=== PATIENT | female | born 1945 | race Caucasian/White ===

== ENCOUNTER 2018-02-12 23:24 | Emergency (ER) | payer OTHER, MEDICARE ==
[~2018-02-12] VITALS: Ht 152.4 cm; Wt 50.4 kg
[~2018-02-12 23:24] MED LIST: ANUSOL HC,ANUCO25 MG PR; ATORVASTATIN CA10 MG PO; DIPHENOXYLATE/1 EACH PO; HYOSCYAMINE0.375 MG PO; HYZAAR 100-21 TABLET PO; INDERAL LA120 MG PO; K-DUR20 MEQ PO; K-Dur PO; KLOR-CON M2020 MEQ PO; LOMOTIL TABLET1 EACH PO; LOPID600 MG PO; LOSARTAN-HCTZ1 EAC3 PO; MAGNESIUM OXID400 MG PO; MULTIVITAMIN1 EAC2 PO; NORVASC2.5 MG PO; PANTOPRAZOLE SO40 MG PO; PRAVASTATIN SOD80 MG PO; Tums,OsCal PO
[2018-02-13 00:10] LABS: HEMOGLOBIN 11.8 G/DL (11.9-15.5); MCH 30.7 PG (29.0-34.0); MCHC 34.7 G/DL (30.0-36.0); MCV 88.5 FL (83-99); PLATELET COUNT 268 K/uL (156-360); RBC DIS.WIDTH-CV 13.2 % (11.8-14.6); RBC DIS.WIDTH-SD 42.5 % (39-53); RED BLOOD COUNT 3.84 M/uL (3.80-5.20); WHITE BLOOD COUNT 8.3 K/uL (4.1-10.2)
[2018-02-13 00:20] LABS: ALBUMIN 4.5 g/dL (3.2-4.8); CHLORIDE 113 mEq/L (99-109); POTASSIUM 3.3 mEq/L (3.7-5.4); SODIUM 147 mEq/L (136-147)
[2018-02-13 00:23] LABS: GLUCOSE 102 mg/dL (70-99); TOTAL PROTEIN 7.6 g/dL (6.4-8.3)
[2018-02-13 00:25] LABS: TOTAL BILIRUBIN 0.6 mg/dL (0.0-1.0)
[2018-02-13 00:26] LABS: ALKALINE PHOSPHATASE 103 IU/L (3-129)
[2018-02-13 00:27] LABS: GFR ESTIMATE (CALCULATED) 58 mL/min/
[2018-02-13 00:28] LABS: AST (GOT) 19 IU/L (2-34); UREA NITROGEN (BUN) 16 mg/dL (9-23)
[2018-02-13 00:30] LABS: ALT (GPT) 10 IU/L (3-49)
[2018-02-13 00:34] LABS: MAGNESIUM 0.8 mg/dL (1.3-2.7)
[2018-02-13 03:05] VITALS: BP 176/70
== END 2018-02-13 03:06 | disposition home or self-care (01) ==
LOC: EME 23:24
PROVIDERS: Physician Assistant
DX: E83.42 Hypomagnesemia (principal); K21.9 Gastro-esophageal reflux disease without esophagitis; I10 Essential (primary) hypertension; E78.5 Hyperlipidemia, unspecified; R73.09 Other abnormal glucose
CPT/HCPCS: 80053; 83735; 85027; 99281; 99285; J3475

== ENCOUNTER 2018-05-20 03:57 | Emergency (ER) | payer OTHER, MEDICARE ==
[~2018-05-20] VITALS: Ht 149.9 cm; Wt 49.9 kg
[2018-05-20 04:24] LABS: HEMATOCRIT 35.4 % (36.0-46.0); HEMOGLOBIN 12.2 G/DL (11.9-15.5); MCHC 34.5 G/DL (30.0-36.0); MCV 90.1 FL (83-99); PLATELET COUNT 313 K/uL (156-360); RBC DIS.WIDTH-CV 13.1 % (11.8-14.6); RBC DIS.WIDTH-SD 42.9 % (39-53); RED BLOOD COUNT 3.93 M/uL (3.80-5.20); WHITE BLOOD COUNT 9.2 K/uL (4.1-10.2)
[2018-05-20 04:36] LABS: CHLORIDE 113 mEq/L (99-109); POTASSIUM 3.7 mEq/L (3.7-5.4); SODIUM 147 mEq/L (136-147)
[2018-05-20 04:38] LABS: GLUCOSE 102 mg/dL (70-99)
[2018-05-20 04:42] LABS: CREATININE 1.2 mg/dL (0.6-1.3); GFR ESTIMATE (CALCULATED) 47 mL/min/
[2018-05-20 04:43] LABS: UREA NITROGEN (BUN) 17 mg/dL (9-23)
[2018-05-20 05:42] LABS: ALBUMIN 4.8 g/dL (3.2-4.8)
[2018-05-20 05:43] LABS: MAGNESIUM 1.1 mg/dL (1.3-2.7)
[2018-05-20 05:45] LABS: TOTAL PROTEIN 8.2 g/dL (6.4-8.3)
[2018-05-20 05:46] LABS: TOTAL BILIRUBIN 0.5 mg/dL (0.0-1.0)
[2018-05-20 05:48] LABS: ALKALINE PHOSPHATASE 103 IU/L (3-129); PHOSPHORUS 3.6 mg/dL (2.5-4.9)
[2018-05-20 05:50] LABS: AST (GOT) 22 IU/L (2-34); DIRECT BILIRUBIN 0.3 mg/dL (0.0-0.3)
[2018-05-20 05:51] LABS: ALT (GPT) 12 IU/L (3-49); LIPASE 51 U/L (1.0-51.0)
[2018-05-20 06:56] LABS: APPEARANCE SL.HAZY ((CLEAR)); BILIRUBIN NEGATIVE; BLOOD SMALL; COLOR YELLOW ((YELLOW)); GLUCOSE (STRIP) NEGATIVE; KETONES NEGATIVE; LEUKOCYTES LARGE; NITRITE POSITIVE; PROTEIN (STRIP) 30; SPECIFIC GRAVITY 1.009 (1.000-1.030); UROBILINOGEN 0.2 MG/DL (0.2-1.0)
[2018-05-20 06:59] LABS: BACTERIA 3+ /HPF; EPITHELIAL CELLS 1+ /HPF; HYALINE CASTS 0-5 /LPF; MUCUS TRACE /LPF; RED BLOOD CELLS 0-5 /HPF (0-5); UCUL ADDED? YES; WHITE BLOOD CELLS TNTC /HPF (0-5)
[2018-05-20 07:20] VITALS: BP 110/53
[2018-05-20] MEDS ORDERED: KEFLEX500 MG PO (08:04)
== END 2018-05-20 07:26 | disposition home or self-care (01) ==
LOC: EME 03:57
DX: E83.42 Hypomagnesemia (principal); E83.51 Hypocalcemia; R19.7 Diarrhea, unspecified; N30.01 Acute cystitis with hematuria; I10 Essential (primary) hypertension; E78.5 Hyperlipidemia, unspecified; K21.9 Gastro-esophageal reflux disease without esophagitis
CPT/HCPCS: 80048; 80076; 81003; 82330; 83690; 83735; 84100; 85027; 87077; 87086; 87186; 93005; 99281; 99285; J3475; J7030

== ENCOUNTER 2018-06-10 16:45 | Emergency (ER) | payer OTHER, MEDICARE ==
[~2018-06-10] VITALS: Ht 152.4 cm; Wt 48.6 kg
[~2018-06-10 16:45] MED LIST changes: +KEFLEX500 MG PO
[2018-06-10 17:43] LABS: HEMATOCRIT 31.7 % (36.0-46.0); HEMOGLOBIN 11.2 G/DL (11.9-15.5); MCH 30.9 PG (29.0-34.0); MCHC 35.3 G/DL (30.0-36.0); MCV 87.6 FL (83-99); PLATELET COUNT 235 K/uL (156-360); RBC DIS.WIDTH-CV 12.8 % (11.8-14.6); RBC DIS.WIDTH-SD 40.8 % (39-53); RED BLOOD COUNT 3.62 M/uL (3.80-5.20); WHITE BLOOD COUNT 12.6 K/uL (4.1-10.2)
[2018-06-10 17:55] LABS: CHLORIDE 112 mEq/L (99-109); SODIUM 144 mEq/L (136-147)
[2018-06-10 17:56] LABS: GLUCOSE 99 mg/dL (70-99)
[2018-06-10 18:00] LABS: GFR ESTIMATE (CALCULATED) 58 mL/min/
[2018-06-10 18:01] LABS: UREA NITROGEN (BUN) 18 mg/dL (9-23)
[2018-06-10 18:24] LABS: TROP-I INTERPRETATION NEGATIVE; TROPONIN-I < 0.01 ng/mL (0.0-0.30)
[2018-06-10 19:29] LABS: MAGNESIUM 0.6 mg/dL (1.3-2.7)
[2018-06-10 22:11] LABS: APPEARANCE SL.HAZY ((CLEAR)); BILIRUBIN NEGATIVE; BLOOD SMALL; COLOR YELLOW ((YELLOW)); GLUCOSE (STRIP) NEGATIVE; KETONES NEGATIVE; LEUKOCYTES SMALL; NITRITE NEGATIVE; PROTEIN (STRIP) 100; UROBILINOGEN 0.2 MG/DL (0.2-1.0)
[2018-06-10 22:17] LABS: BACTERIA RARE /HPF; EPITHELIAL CELLS 1+ /HPF; MUCUS TRACE /LPF; UCUL ADDED? YES
[2018-06-10 23:02] LABS: CHLORIDE 113 mEq/L (99-109); POTASSIUM 3.2 mEq/L (3.7-5.4); SODIUM 145 mEq/L (136-147)
[2018-06-10 23:04] LABS: GLUCOSE 94 mg/dL (70-99)
[2018-06-10 23:08] LABS: CREATININE 1.1 mg/dL (0.6-1.3); GFR ESTIMATE (CALCULATED) 52 mL/min/
[2018-06-10 23:09] LABS: UREA NITROGEN (BUN) 18 mg/dL (9-23)
[2018-06-10 23:14] LABS: MAGNESIUM 0.9 mg/dL (1.3-2.7)
[2018-06-11 00:37] VITALS: BP 115/78
== END 2018-06-11 00:29 | disposition home or self-care (01) ==
LOC: EME 16:45
PROVIDERS: Nurse Practitioner Family
DX: E83.42 Hypomagnesemia (principal); E83.51 Hypocalcemia; R20.0 Anesthesia of skin; R19.7 Diarrhea, unspecified; E78.5 Hyperlipidemia, unspecified; I10 Essential (primary) hypertension; K21.9 Gastro-esophageal reflux disease without esophagitis; Z85.828 Personal history of other malignant neoplasm of skin
CPT/HCPCS: 70450; 71046; 80048; 80048 91; 81003; 83735; 84484; 85027; 87086 GA; 93005; 99281; 99285; J3475

== ENCOUNTER 2018-06-20 05:33 | Emergency (ER) | payer OTHER, MEDICARE ==
[~2018-06-20] VITALS: Ht 149.9 cm; Wt 42.1 kg
[2018-06-20 05:51] LABS: HEMATOCRIT 32.7 % (36.0-46.0); HEMOGLOBIN 11.4 G/DL (11.9-15.5); MCH 30.7 PG (29.0-34.0); MCHC 34.9 G/DL (30.0-36.0); MCV 88.1 FL (83-99); RBC DIS.WIDTH-CV 12.7 % (11.8-14.6); RBC DIS.WIDTH-SD 40.8 % (39-53); RED BLOOD COUNT 3.71 M/uL (3.80-5.20); WHITE BLOOD COUNT 9.6 K/uL (4.1-10.2)
[2018-06-20 05:54] LABS: PLATELET COUNT 417 K/uL (156-360)
[2018-06-20 06:03] LABS: CHLORIDE 117 mEq/L (99-109); POTASSIUM 3.4 mEq/L (3.7-5.4); SODIUM 145 mEq/L (136-147)
[2018-06-20 06:05] LABS: GLUCOSE 99 mg/dL (70-99)
[2018-06-20 06:08] LABS: CREATININE 0.9 mg/dL (0.6-1.3); GFR ESTIMATE (CALCULATED) > 59 mL/min/
[2018-06-20 06:09] LABS: UREA NITROGEN (BUN) 18 mg/dL (9-23)
[2018-06-20 06:10] LABS: MAGNESIUM 0.8 mg/dL (1.3-2.7)
[2018-06-20 06:48] VITALS: BP 120/68
== END 2018-06-20 06:49 | disposition home or self-care (01) ==
LOC: EME 05:33
PROVIDERS: Emergency Medicine
DX: E83.42 Hypomagnesemia (principal); E87.6 Hypokalemia; E78.5 Hyperlipidemia, unspecified; I10 Essential (primary) hypertension; K21.9 Gastro-esophageal reflux disease without esophagitis; Z85.820 Personal history of malignant melanoma of skin
CPT/HCPCS: 80048; 83735; 85027; 93005; 99281; 99284; J3475

== ENCOUNTER 2018-07-03 13:00 | Observation (INO) | payer OTHER, MEDICARE ==
[~2018-07-03] VITALS: Ht 152.4 cm; Wt 48.8 kg
[2018-07-03 13:53] LABS: HEMATOCRIT 33.3 % (36.0-46.0); HEMOGLOBIN 11.6 G/DL (11.9-15.5); MCH 30.9 PG (29.0-34.0); MCHC 34.8 G/DL (30.0-36.0); MCV 88.6 FL (83-99); RBC DIS.WIDTH-CV 13.1 % (11.8-14.6); RBC DIS.WIDTH-SD 41.7 % (39-53); RED BLOOD COUNT 3.76 M/uL (3.80-5.20); WHITE BLOOD COUNT 9.2 K/uL (4.1-10.2)
[2018-07-03 14:09] LABS: ALBUMIN 4.4 g/dL (3.2-4.8); CHLORIDE 112 mEq/L (99-109); POTASSIUM 3.8 mEq/L (3.7-5.4); SODIUM 142 mEq/L (136-147)
[2018-07-03 14:12] LABS: GLUCOSE 109 mg/dL (70-99); TOTAL PROTEIN 7.7 g/dL (6.4-8.3)
[2018-07-03 14:14] LABS: TOTAL BILIRUBIN 0.7 mg/dL (0.0-1.0)
[2018-07-03 14:16] LABS: ALKALINE PHOSPHATASE 74 IU/L (3-129); CREATININE 0.9 mg/dL (0.6-1.3); GFR ESTIMATE (CALCULATED) > 59 mL/min/; UREA NITROGEN (BUN) 16 mg/dL (9-23)
[2018-07-03 14:17] LABS: AST (GOT) 24 IU/L (2-34)
[2018-07-03 14:18] LABS: ALT (GPT) 14 IU/L (3-49)
[2018-07-03 14:19] LABS: LIPASE 50 U/L (1.0-51.0)
[2018-07-03 14:34] LABS: PLAT.SUFFICIENCY ADEQUATE
[2018-07-03 14:45] LABS: MAGNESIUM 0.7 mg/dL (1.3-2.7)
[2018-07-03 15:06] LABS: PLATELET COUNT 284 K/uL (156-360)
[2018-07-03 15:21] LABS: APPEARANCE SL.HAZY ((CLEAR)); BILIRUBIN NEGATIVE; BLOOD SMALL; COLOR YELLOW ((YELLOW)); GLUCOSE (STRIP) NEGATIVE; KETONES NEGATIVE; LEUKOCYTES LARGE; NITRITE NEGATIVE; PROTEIN (STRIP) NEGATIVE; SPECIFIC GRAVITY 1.011 (1.000-1.030); UROBILINOGEN 0.2 MG/DL (0.2-1.0)
[2018-07-03 15:41] LABS: BACTERIA RARE /HPF; EPITHELIAL CELLS 1+ /HPF; HYALINE CASTS 0-5 /LPF; MUCUS TRACE /LPF; RED BLOOD CELLS NONE SEEN /HPF (0-5); UCUL ADDED? YES; WHITE BLOOD CELLS 20-30 /HPF (0-5)
[2018-07-03] MEDS ORDERED: AMLODIPINE BESYL5 MG PO (17:38)
[2018-07-03] MEDS ORDERED: LOSARTAN POTAS100 MG PO (17:41)
[2018-07-03] MEDS ORDERED: MAG-OXIDE400 MG PO (17:48)
[2018-07-03] MEDS ORDERED: ATORVASTATIN CA80 MG PO (17:49)
[2018-07-03] MEDS ORDERED: GEMFIBROZIL600 MG PO (17:50)
[2018-07-03] MEDS ORDERED: METOPROLOL SUCC50 MG PO (17:50)
[2018-07-03 18:29] VITALS: BP 101/55
[2018-07-03 23:42] VITALS: BP 114/55
[2018-07-04 05:41] LABS: C DIFF TOXIN NEGATIVE (NEGATIVE)
[2018-07-04 06:10] LABS: CHLORIDE 114 MEQ/L (99-109); CREATININE 0.8 MG/DL (0.6-1.3); GFR ESTIMATE (CALCULATED) > 59 mL/min/; GLUCOSE 89 mg/dL (70-99); SODIUM 145 MEQ/L (136-147); UREA NITROGEN (BUN) 11 mg/dL (9-23)
[2018-07-04 07:53] VITALS: BP 122/60
[2018-07-04 09:07] LABS: ALBUMIN 3.6 G/DL (3.2-4.8); MAGNESIUM 0.7 mg/dl (1.3-2.7)
[2018-07-04 11:20] VITALS: BP 104/53
[2018-07-04] MEDS ORDERED: K-DUR20 MEQ PO (14:31)
== END 2018-07-04 15:49 | disposition home or self-care (01) ==
LOC: EME 13:00 → 4SOUTH 16:26 → EDOF 16:26 → ENRESERV 16:36 → 4SOUTH 17:52
PROVIDERS: Emergency Medicine; Hospitalist
DX: R11.2 Nausea with vomiting, unspecified (principal); E83.42 Hypomagnesemia; E87.6 Hypokalemia; R19.7 Diarrhea, unspecified; E86.0 Dehydration; E87.8 Other disorders of electrolyte and fluid balance, not elsewhere classified; Z86.19 Personal history of other infectious and parasitic diseases; I10 Essential (primary) hypertension; E78.5 Hyperlipidemia, unspecified
CPT/HCPCS: 74022; 80048; 80053; 81003; 82040; 83690; 83735; 85027; 87086 GA; 87177; 87425-90; 87493; 87506; 93005; 99281; 99285; G0378; J1650; J2405; J3475; J3480; J7030